=== PATIENT | male | born 1945 | race Caucasian/White ===

== ENCOUNTER 2019-10-12 07:12 | Inpatient (IN) ==
[~2019-10-12 07:12] MED LIST: Buffered Lidocaine 1% SYRIN 1 ml INTRADERM ONE; Lactated Ringers 1000 ml BAG 1,000 ML IV SCH
[2019-10-12] MEDS ORDERED: ceFAZolin 1 GM ADVAN 1 GM ADDV.VIAL IVPB ONE (08:10)
[2019-10-12] MEDS ORDERED: ceFAZolin 2 GM PREMIX 2 GM/50 ML BAG ONE (08:10)
[2019-10-12] MEDS ORDERED: Buffered Lidocaine 1% SYRIN 1 ml INTRADERM ONE (08:10)
[2019-10-12] MEDS ORDERED: Lidocaine 2% PF 5 ML VIAL ONE ×4 (08:28→10:22)
[2019-10-12] MEDS ORDERED: Succinylcholine 200 mg VIAL 20 mg/ml 10 ml VIAL (200 mg) ONE (08:28)
[2019-10-12] MEDS ORDERED: Bupivacaine 0.5% SDV PF 30ML VIAL ONE (08:30)
[2019-10-12] MEDS ORDERED: Rocuronium 50 mg VIAL 10 mg/ml 5 ml VIAL (50 mg) ONE (08:30)
[2019-10-12] MEDS ORDERED: Sterile Water for Inj 10 ML ONE ×2 (08:31→11:01)
[2019-10-12] MEDS ORDERED: EPHEDrine (Pressors) 50 MG/ML VIAL ONE ×2 (08:31→11:01)
[2019-10-12] MEDS ORDERED: ROPIVACAINE 5 MG/ML 30 ML BTL (0.5%) ONE (09:25)
[2019-10-12] MEDS ORDERED: Lidocaine 1% MPF 5 ML VIAL ONE (09:25)
[2019-10-12] MEDS ORDERED: Ketamine HCL 50 mg/ml 10 ml VIAL (500 MG) ONE (09:25)
[2019-10-12] MEDS ORDERED: Midazolam 5 mg/5 ml VIAL 1 mg/ml 5 ml VIAL (5 mg) ONE (09:32)
[2019-10-12] MEDS ORDERED: fentaNYL 100 mcg/2 ml 50 MCG/ML VIAL ONE (10:06)
[2019-10-12] MEDS ORDERED: Ondansetron 4 mg VIAL 2 MG/ML 2 ml VIAL ONE (10:36)
[2019-10-12] MEDS ORDERED: Phenylephrine 40 mcg/mL 10mL (400mcg) SYRINGE ONE (10:36)
[2019-10-12] MEDS ORDERED: Dexamethasone IV 4 MG/ML VIAL 1 ml VIAL ONE (10:36)
[2019-10-12] MEDS ORDERED: Metoclopramide 5 MG/ML VIAL (10 mg) ONE (10:36)
[2019-10-12] MEDS ORDERED: Glycopyrrolate IV 0.2 MG/ML 1 ML VIAL ONE (10:55)
[2019-10-12] MEDS ORDERED: Ondansetron ODT 4 mg TAB 4 MG TAB PO PRN (13:20)
[2019-10-12] MEDS ORDERED: Morphine 2 MG/ML SYRINGE IV PRN (13:20)
[2019-10-12] MEDS ORDERED: oxyCODONE/Acetamin 5/325 mg TAB PO PRN ×2 (13:20)
[2019-10-12] MEDS ORDERED: Ondansetron 4 mg VIAL 2 MG/ML 2 ml VIAL IV PRN ×2 (13:20→13:22)
[2019-10-12] MEDS ORDERED: Lactulose 30 ml UDC PO PRN (13:20)
[2019-10-12] MEDS ORDERED: diPHENhydraMINE 25 mg TAB PO PRN (13:20)
[2019-10-12] MEDS ORDERED: diPHENhydraMINE IV 50 MG/ML 1 ml VIAL (BENADRYL) IV PRN (13:20)
[2019-10-12] MEDS ORDERED: Magnesium Hydroxide LIQ 30 ML UDC PO PRN (13:20)
[2019-10-12] MEDS ORDERED: Naloxone 0.4 mg VIAL 0.4 mg/ml 1 ml VIAL IV PRN (13:22)
[2019-10-12] MEDS ORDERED: Dextrose 50% Syringe 50 ml 25 GM/50 ML SYRINGE IV PUSH PRN (14:29)
[2019-10-12] MEDS: Lactated Ringers 1000 ml BAG 1,000 ML IV SCH (16:00)
[2019-10-12] MEDS: ceFAZolin 1 GM ADVAN 1 GM in NS 0.9% 50 ML 50 ML IVPB SCH (18:00)
[2019-10-12] MEDS: Magnesium Hydroxide LIQ 30 ML UDC PO SCH (22:40)
[2019-10-12] MEDS: SULFADIAZINE 500 MG PO SCH (22:51)
[2019-10-13] MEDS: ceFAZolin 1 GM ADVAN 1 GM in NS 0.9% 50 ML 50 ML IVPB SCH ×2 (02:58→10:18)
[2019-10-13] MEDS: Lactated Ringers 1000 ml BAG 1,000 ML IV SCH (02:58)
[2019-10-13 06:21] LABS: Hematocrit 32 % (42-52); Hemoglobin 10.8 g/dL (14.0-18.0); Mean Platelet Volume 7.4 fL (7.4-10.4); Platelet Count 316 10^3/uL (150-450)
[2019-10-13 06:40] LABS: BUN/Creatinine Ratio 16.7 (8-20); Calcium 8.6 mg/dL (8.6-10.3); EGFR African American 129.8 (>60); EGFR Non-African American 107.3 (>60); Potassium 3.8 mmol/L (3.5-5.0)
[2019-10-13] MEDS ORDERED: Phenylephrine 40 mcg/mL 10mL (400mcg) SYRINGE ONE (06:47)
[2019-10-13] MEDS: Magnesium Hydroxide LIQ 30 ML UDC PO SCH (08:04)
[2019-10-13] MEDS: SULFADIAZINE 500 MG PO SCH (08:40)
[2019-10-13] MEDS ORDERED: CANDESARTAN 16 MG PO SCH (09:00)
[2019-10-13] MEDS ORDERED: Vitamin THERAPEUTIC TAB PO SCH (09:00)
[2019-10-13] MEDS ORDERED: Potassium Chlor 20 meq TAB.ER PO SCH (09:00)
[2019-10-13 11:15] VITALS: BP 136/71
== END 2019-10-13 15:10 | disposition home or self-care (01) | DRG 470 ==
LOC: OR 07:12 → SSU 13:21
PROVIDERS: ADMIT Orthopaedic Surgery; ATTEND Orthopaedic Surgery